=== PATIENT | female | born 2000 | race Caucasian/White ===

== ENCOUNTER 2022-06-24 21:23 | Emergency (ER) | payer OTHER, BC, SELFPAY ==
[2022-06-24 21:26] VITALS: BP 113/76; PULSE 68; RESP 12; TEMP 36.6; O2SAT 97; BMI 24.0
--- NOTE | 2022-06-24 22:08 | ED.GENADULT ---
HPI - General Adult General Chief complaint: Unspecified Complaint, Adult Stated complaint: Ring stuck on finger Time Seen by Provider: 06/24/22 21:26 History of Present Illness HPI narrative: Pt is a 22 year old woman who felt like the ring on her right forth finger is getting tighter. The more she tried to get it off the tighter it became. Pt now has swelling of the forth digit but still good blood supply. No trauma or other symptoms. Otherwise feeling well. Minimal pain. Related Data Home Medications Medication Instructions Recorded Confirmed fluticasone propionate 50 intranasal 03/24/22 mcg/actuation nasal spray,suspension gabapentin 300 mg capsule mg 03/24/22 trazodone 50 mg tablet mg 03/24/22 Allergies Allergy/AdvReac Type Severity Reaction Status Date / Time No Known Drug Allergies Allergy Verified 03/24/22 15:45 Review of Systems Status of ROS: Reports: 6 or more systems reviewed and unremarkable except as noted in History and below [facility] Medical History No significant past medical history Surgical History No significant past surgical history Social History Smoking Status: Former smoker Do you use any of these nicotine containing products: Vaping Products Second hand tobacco smoke exposure: Yes How often do you have a drink containing alcohol: never AUDIT-C Alcohol total score: 0 Non-prescribed substance use: former substance user and marijuana (any form) service: No Exam Narrative: Exam Narrative: EXAM GENERAL: Patient appears comfortable and well. EYES: No scleral icterus. LYMPH: No supraclavicular or cervical lymphadenopathy. SKIN: Visible skin seen during exam normal or with benign process only. EXT: No dependent lower extremity pedal edema. Mild swelling of the 4th digit of the right hand with tight ring in place. Good capillary refill normal neuromuscular function. PSYCH: Good eye contact, speech is not pressured. Const: Vital Signs, click to edit/add: Vital Signs - 24 hr 06/24/22 21:26 Temperature 97.9 F Pulse Rate [Pulse Oximeter] 68 Respiratory Rate 12 Blood Pressure [Ri ght Upper Arm] 113/76 Pulse Oximetry 97 Oxygen Delivery Me thod Room Air Course Course Hospital Course: The nursing staff did attempt multiple conservative treatments to remove the ring. Eventually, we did use a ring cutter to successfully remove the ring. Her finger is looking much better and she is ready for discharge. Vital Signs Vital signs: Initial Vital Signs Temperature 97.9 F 06/24/22 21:26 Temperature Source Temporal Artery Scan 06/24/22 21:26 Pulse Rate 68 06/24/22 21:26 Pulse Rhythm 06/24/22 21:26 Respiratory Rate 12 06/24/22 21:26 Blood Pressure 113/76 06/24/22 21:26 Blood Pressure Mean 88 06/24/22 21:26 Blood Pressure Position Sitting 06/24/22 21:26 Pulse Oximetry 97 06/24/22 21:26 Oxygen Delivery Method 06/24/22 21:26 Vital Signs Temperature 97.9 F 06/24/22 21:26 Pulse Rate 68 06/24/22 21:26 Respiratory Rate 12 06/24/22 21:26 Blood Pressure 113/76 06/24/22 21:26 Pulse Oximetry 97 06/24/22 21:26 Oxygen Delivery Method 06/24/22 21:26 Temperature 97.9 F 06/24/22 21:26 Pulse Rate 68 06/24/22 21:26 Respiratory Rate 12 06/24/22 21:26 Blood Pressure 113/76 06/24/22 21:26 Pulse Oximetry 97 06/24/22 21:26 Oxygen Delivery Method 06/24/22 21:26 Medical Decision Making MDM Narrative Medical decision making narrative: Patient presents with a tight ring on her 4th upper extremity digit. We did try to get the ring off conservatively but eventually cut the ring off with ring cutter. The swelling and induration of the finger improved immediately. Differential Diagnosis Differential Diagnosis: Tight ring, sprain, strain, fracture Discharge Plan Discharge Clinical Impression: Finger swelling Patient Disposition: Home, Self-Care Condition: Stable Additional Instructions: Ice Tylenol Motrin Activity Level: No Restrictions Discharge Diet: Regular Prescriptions: No Action trazodone 50 mg tablet gabapentin 300 mg capsule fluticasone propionate 50 mcg/actuation spray,suspension INTRANASAL Follow Up/Referrals: Adelaide Alejo PA-C [Primary Care Provider] - Stand Alone Forms: [facility] Info Instructions
[2022-06-24 22:14] VITALS: BP 113/76; PULSE 68; RESP 12; TEMP 36.6
--- OUTSIDE RECORDS SUMMARY | 2022-06-24 22:18 | XMS_ITS ---
:2000 Author Care Team Providers Name Role Phone FARZAD HAY Primary Care Provider [phone] DR. KONRAD GREENWOOD Referring Provider [phone] Allergies Code Code System Name Reaction Severity Status Onset Animal Dander ? ? Active ? Seasonale Contraceptive ? ? Deacti vated ? Notes: Seasonal Allergies Medications Name Status Start Date Stop Date ? ? bupropion HCl XL 150 mg 24 hr tablet, extended release Active ? Not available buspirone 10 mg tablet Active ? Not avail able clomipramine 25 mg capsule Completed ? 06/13 clomipramine 50 mg capsule Completed ? 06/13 clomipramine 75 mg capsule Active ? Not a vailable Elinest 0.3 mg-30 mcg tablet Active ? Not available fluticasone propionate 50 mcg/actuation nasal Active ? Not available spray,suspension hydroxyzine HCl 10 mg tablet Active ? Not available 10/07 (21) 1 mg-20 mcg tablet Completed ? 06/13/2018 once per day levocetirizine 5 mg tablet Active ? Not a vailable melatonin Active ? Not available Take 1 10 mg daily Myrbetriq 25 mg tablet,extended release Completed ? 06/13/2018 propranolol 20 mg tablet Completed ? 018 venlafaxine ER 37.5 mg capsule,extended release 24 hr Active ? Not available venlafaxine ER 75 mg capsule,extended release 24 hr Completed ? 01/31/2017 Wellbutrin Completed ? 06/13/2018 once per day Zyrtec Active ? Not available Take 1 tabelt daily Problems Name Status Onset Date Source ? Episodic Tension-type Headache Active 01/16/2017 ? 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 Arthralgia of Temporomandibular Joint Active 06/18/2018 ? Procedures Date Name Performed by ? ? Revise External Ear Information not avai lable ? Foot/toes Surgery Procedure Information not available 01/12/2017 XR, Orthopantogram [place] [address] [place] [address] (Work Place) Results Lab Results Date Name Specimen Result Interpretation Description Value Range Status Address ? ? XR, Orthopantogram ? No observation ? ? ? [place]: [address], [place] ? Oral Appliance ? No observation ? ? ? [place]: [address], [place] ? Behavioral Health ? No observation ? ? ? [place]: [address], [place] Past Encounters None recorded. Social History Tobacco Smoking Status Never Smoker Vaccine List Notes: No 01-31-17 Plan of Care Reminders Provider Appointments None recorded. ? ? Lab None recorded. ? ? Referral None recorded. ? ? Procedures None recorded. ? ? Surgeries None recorded. ? ? Imaging None recorded. ? ? Vitals 06/13/2018 03:30PM FOLLOW UP 30 Height Weight BMI Blood Pressure 5 ft 4 in 135 lbs 23.2 kg/m2 124/84 mm[Hg] 03/23/2017 11:30AM FOLLOW UP 30 Height Weight BMI Blood Pressure 5 ft 4 in 155 lbs 26.6 kg/m2 120/65 mm[Hg] 01/31/2017 03:30PM SPLINT INSERT Height Weight BMI Blood Pressure 5 ft 4 in 156 lbs 26.8 kg/m2 111/70 mm[Hg] 01/12/2017 03:00PM NEW PATIENT 60 Height Weight BMI Blood Pressure 5 ft 4 in 160 lbs 27.5 kg/m2 117/72 mm[Hg]
--- OUTSIDE RECORDS SUMMARY | 2022-06-24 22:18 | XMS_ITS ---
:2000 Author Care Team Providers Name Role Phone FARZAD HAY Primary Care Provider [phone] DR. KONRAD GREENWOOD Referring Provider [phone] Allergies Code Code System Name Reaction Severity [...] Procedure Information not available 01/12/2017 XR, Orthopantogram [place] [address] [place] [address] (Work Place) Results Lab Results Date Name Specimen Result Interpretation Description Value Range Status Address ? ? XR, Orthopantogram ? No observation ? ? ? [place]: [address], [place] ? Oral Appliance ? No observation ? ? ? [place]: [address], [place] ? Behavioral Health ? No observation ? ? ? [place]: [address] [...]
--- OUTSIDE RECORDS SUMMARY | 2022-06-24 22:18 | XMS_ITS | Clinical Summary ---
:2000 Author Organization [facility] Address [address] [place] [address] Care Team Providers Name Role Phone Unavailable Primary Care Provider Unavailable Source Comments Patient records contain information from all sites at [facility]. For routine questions regarding patient records, call [phone] during business hours, M-F 8:00 AM - 5:00 PM Central Time. Record requests for emergency care only can be directed to [phone] at any time.[facility] Social History Tobacco Use Types Packs/Day Years Used Date Smoking Tobacco: Never Assessed Sex Assigned at Date Recorded Not on file Plan of Treatment Health Maintenance Due Date Last Done Comments Chlamydia and Gonorrhea 2002 Screening HIV Screening 2002 Hearing Screening during 2002 Well Child Visit Hepatitis C Screening 2002 1 week Well Child Check-Up 2002 1 month Well Child Check-Up 2002 2 month Well Child Check-Up 2002 4 month Well Child Check-Up 2002 6 month Well Child / 2002 Alternative Check-Up 9 month Well Child Check-Up 2002 12 month Well Child / 02/24/2003 Alternative Check-Up 15 month Well Child Check-Up 05/27/2003 18 month Well Child 08/26/2003 2 year Well Child Check-Up 02/25/2004 30 month Well Child Check-Up 08/26/2004 3 year Well Child Check-Up 02/24/2005 4 year Well Child Check-Up 02/24/2006 5 year Well Child Check-Up 02/24/2007 6 year Well Child Check-Up 02/25/2008 7 year Well Child / 02/24/2009 Alternative Check-Up 8 year Well Child Check-Up 02/24/2010 9 year Well Child / 02/24/2011 Alternative Check-Up 10 year Well Child Check-Up 02/25/2012 11 year Well Child Check-Up 02/24/2013 12 year Well Child Check-Up 02/24/2014 13 year Well Child Check-Up 02/24/2015 16 year Well Child Check-Up 02/25/2016 Vision Screening during Well 2016 Child Visit 17 year Well Child Check-Up 02/24/2017 18 year Well Child Check-Up 02/24/2018 19 year Well Child Check-Up 02/24/2019 20 year Well Child Check-Up 02/25/2020 21 year Well Child Check-Up 02/24/2021 COVID-19 Vaccine (3 - 09/07/2021 07/13/2021, 06/11/2021 Booster for Pfizer series) Depression Screening (Annual 09/18/2021 PHQ-2) 22 year Well Child Check-Up 02/24/2022 Well Child Check-Up ([facility]) 02/24/2022 Influenza Vaccine (#1) 2022 05/17/2012, 05/17/2012, 06/21/2011, Additional history exists DTaP,Tdap,and Td Vaccines (8 04/12/2031 04/12/2021, 013, - Td or Tdap) 05/17/2007, Additional history exists Pneumococcal vaccine (0-64 Aged Out 09/02/2003, 2, No longer eligible years) 2002 based on patient 's age to complete this topic Meningococcal Vaccine Completed 07/12/2019, 05/15/2013 Anemia/Iron Deficiency Completed 07/31/2019 Screening During Well Child Visit (if High Risk Menstruating Female) HPV Vaccines Completed 01/29/2020, 09/06/2019, 07/12/2019 Hepatitis B Vaccines Completed 10/27/2020, 05/12/2003, 2002, Additional history exists
--- OUTSIDE RECORDS SUMMARY | 2022-06-24 22:18 | XMS_ITS | Encounter Summary ---
:2000 Author Organization [facility] Address [address] [place] [id number] Care Team Providers Name Role Phone Unavailable Primary Care Provider Unavailable Reason for Visit Appointment Request (Routine) - Closed Specialty Diagnoses / Procedures Referred By Contact Refer red To Contact Preventive Medicine Referral ID Status Reason Start Date Expiration Date Visits Requ ested Visits Authorized [id number] Closed 09/30/2020 09/30/2021 1 1 Encounter Details Date Type Department Care Team Description 09/30/2020 Internal E-Consult Section of Preventive, Celi Chavez M.D. Occupational Medicine in [address] [place] [address] [place] [id number] [place] [address] [phone] Social History Tobacco Use Types Packs/Day Years Used Date Smoking Tobacco: Never Assessed Sex Assigned at Date Recorded Not on file documented as of this encounter Consult Notes Darien Chavez M.D. - 09/30/2020 2:00 PM CST SUBJECTIVE Lona Chowdary is a 20 y.o. female who requires evaluation for respiratory clearance. Mask types: N95/PAPR Prior difficulties using mask: No Significant medical history: No Respirator questionnaire: Reviewed, no concerns ASSESSMENT / PLAN Respirator clearance review completed. Based on the review, appropriate test and exam, she is medically cleared for unrestricted N95 and PAPR respirator and personal protective equipment use. Recheck per [facility] institutional protocol, sooner if needed. Appropriate forms filled out for the employer, see scanned documents for details. 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
--- OUTSIDE RECORDS SUMMARY | 2022-06-24 22:18 | XMS_ITS | Clinical Summary ---
:2000 Author Organization [facility] [place] [address] Care Team Providers Name Role Phone Adelaide Alejo Primary Care Provider [phone] Allergies Active Allergy Reactions Severity Noted Date Comments Cats (Fur, Dander, Other - Describe In 05/17/2007 it emir eyes, sneezing Saliva) Comment Field Pollen Extracts Runny Nose 04/07/2014 Medications Medication Sig Dispensed Refills Start Date End Date Status cetirizine (ZYRTEC) 10 Take 1 tablet 0 02/03/2014 Active mg tablet by mouth once daily. linaCLOtide (LINZESS) Take 1 Capsule 30 capsule. 11 04/21/2021 Active 72 mcg cap (72 mcg) by capsuleIndications: mouth once Irritable bowel daily. syndrome with constipation, Chronic constipation gabapentin (NEURONTIN) Take 1 Capsule 60 Capsule 2 06/09/2021 Active 300 mg (300 mg) by capsuleIndications: mouth 2 times Anxiety daily. traZODone (DESYREL) 50 Take 1-2 90 Tablet 0 12/31/2021 Active mg tabletIndications: Tablets (50-100 Insomnia, idiopathic mg) by mouth at bedtime. phenazopyridine Take 1 Tablet 6 Tablet 0 03/05/2022 Active (PYRIDIUM) 200 mg (200 mg) by tabletIndications: mouth 3 times Urinary tract infection daily after with hematuria, site meals. unspecified fluticasone (50 mcg per INHALE TWO 48 g 1 05/20/2022 Active actuation) nasal SPRAYS TO BOTH solution NOSTRILS ONCE (FLONASE)Indications: DAILY Seasonal allergies, Animal dander allergy nicotine (NICORETTE) 2 Chew 1 gum (2 100 Each 0 05/31/2022 Active mg gumIndications: mg) every hour Smoking trying to quit while awake as needed for Nicotine Craving. nicotine (NICORETTE) 4 Chew 1 Each (4 100 Each 4 06/24/2022 Active mg gumIndications: mg) every hour Smoking trying to quit while awake as needed for Nicotine Craving. Active Problems Problem Noted Date Nexplanon in place 08/11/2020 Overview: Left arm, placed 08/11/2020 Cannabis use disorder, mild, in early remission 2017 Nicotine abuse 06/29/2018 Alcohol abuse 06/29/2018 JOSE (generalized anxiety disorder) 07/03/2017 Parent-child relational problem 06/17/2016 Self-inflicted injury 09/01/2015 Major depressive disorder, single episode, moderate Anxiety state, unspecified 01/06/2015 Syncope 03/13/2013 Allergic rhinitis, cause unspecified 07/25/2008 Resolved Problems Problem Noted Date Resolved Date Intentional drug overdose 06/29/2018 10/08/2021 Alcohol abuse, continuous 11/10/2015 08/25/2017 Reactive airway disease 07/25/2008 03/19/2014 Varicella without mention of complication 10/02/2007 06/04/2010 Overview: allergic to eggs Acute bronchitis 01/16/2007 07/02/2007 Encounters Date Type Specialty Care Team Description 06/24/2022 Phone Office Visit Adelaide Alejo Phone Visit (KEISHA Traylor during sex - cy cles are becoming chun r and scooby - royal herrera spotting.); Con ceryamileth (Had a diagnosi s of ADHD, therapist thinks it may be a goo d idea to try ADHD meds. ) 06/24/2022 Travel 05/17/2022 Refill Adelaide Alejo Refill Requ KEISHA Daniel (Fluticasone (5 0 Mcg Per Actuation) Nasa l) from Last 3 Months Immunizations Name Administration Dates Next Due DTaP 05/17/2007, 09/02/2003, 2002, 2002, 2002 HIB HbOC (HibTITER) 09/02/2003, 2002, 2002, 2002 HIB PRP-T (ActHIB,Hiberix) 09/02/2003, 2002, 2, 2002 HPV 9 (Gardasil 9) 01/29/2020, 09/06/2019, 07/12/2019 Hep B (Hepatitis B (Adult) Recombinant 10/27/2020 Adjuvanted) Hepatitis A (Peds) 06/21/2011, 06/04/2010 Hepatitis B (Peds) 05/12/2003, 2002, 2002 Inactivated Polio Vaccine 05/17/2007, 09/02/2003, 2002 , 2002 Influenza, IIV3 (Age 6-35 mos) 06/21/2011, 06/04/2010 Influenza, IIV3 (Age >=3 years) 05/17/2012, 06/21/2011, 05/19, 07/25/2008 MMR 05/17/2007, 09/02/2003 Meningococcal Vaccine (Menveo) 07/12/2019, 05/15/2013 Pneumococcal conj 7-Valent (Prevnar 7) 09/02/2003, 2, 2002 Tdap 04/12/2021, 05/15/2013 Varicella Vaccine 06/04/2010, 07/25/2008 Family History Medical History Relation Name Comments Alcoholism Father recovered Allergies Father Hyperlipidemia Father Hypertension Father Psychiatric illness Father depression Allergies Maternal Aunt Asthma Maternal Aunt Alcoholism Maternal Grandmother recovered Cancer Maternal Grandmother cervical Psychiatric illness Maternal Grandmother depress ion, anxiety Psychiatric illness Mother anxiety, ADH D-Lorazepam as needed Cancer Paternal Grandmother cervical Psychiatric illness Paternal Grandmother depress ion Relation Name Status Comments Father Alive Half-Brother Alive Half-Sister Alive Maternal Aunt Maternal Grandmother Mother Alive Paternal Grandmother Social History Tobacco Use Types Packs/Day Years Used Date Passive Smoke Exposure - Never Smoker Smokeless Tobacco: Never Used Tobacco Cessation: Counseling Given: Yes Comments: parents smoke but smoke outdoo rs-used to vape 07/19/19 Alcohol Use Standard Drinks/Week Comments Not Currently 0 (1 standard drink = 0.6 oz pure alcoho l) 2 x month Alcohol Habits Answer Date Recorded How often do you have a drink containing alcohol? Not asked How many drinks containing alcohol do you have on a typical Not asked day when you are drinking? How often do you have six or more drinks on one occasion? No t asked Comment: 2 x month 06/29/2018 Sex Assigned at Date Recorded Female 04/27/2021 9:11 AM CDT COVID-19 Exposure Response Date Recorded In the last 10 days, have you been in contact Unable to asse ss 06/24/2022 2:20 PM CDT with someone who was confirmed or suspected to have Coronavirus/COVID-19? Obstetrics History Last Filed Vital Signs Vital Sign Reading Time Taken Comments Blood Pressure 111/68 03/05/2022 3:53 PM CDT Pulse 87 03/05/2022 3:53 PM CDT Temperature 36.9 ??C (98.4 ??F) 03/05/2022 3:53 PM CDT Respiratory Rate 16 03/05/2022 3:53 PM CDT Oxygen Saturation 96% 03/05/2022 3:53 PM CDT Inhaled Oxygen Concentration - - Weight 71.7 kg (158 lb) 02/08/2022 12:04 PM CDT Height 163.8 cm (5' 4.49) 02/08/2022 12:04 PM CDT Body Mass Index 26.71 02/08/2022 12:04 PM CDT Plan of Treatment Health Maintenance Due Date Last Done Comments Pneumococcal series for age 19-64 2008 (1 - PCV) COVID-19 vaccine series (3 - 09/07/2021 07/13/2021, 021 Booster for Pfizer series) Influenza for age 9-49 05/19/2022 05/17/2012, 06/21/2011, 06/04/2010, Additional history exists Depression screening for age 12+ 06/09/2022 06/09/2021, , 03/23/2020, Additional history exists Well Child Check for age 3-20 06/09/2022 06/09/2021, 2018, 06/06/2017, Additional history exists BMI (ht and wt on same day) for 02/08/2023 02/08/2022, 09/19, age 18+ 06/30/2021, Additional history exists Chlamydia for age 16-24 03/05/2023 03/05/2022, 02/08/2022, 10/08/2021, Additional history exists Tetanus booster 04/12/2031 04/12/2021, 05/15/2013 Meningococcal series for age 11-21 Completed 07/12/2019, 0 05/15/2013 HPV series for age 9-26 Completed 01/29/2020, 09/06/2019, 07/12/2019 Tdap Completed 04/12/2021, 05/15/2013 Hepatitis C screening for age Completed 06/09/2021, 2020 18-79 Results Not on filefrom Last 3 Months Insurance Payer Benefit Plan / Subscriber ID Effective Dates Phone Addre ss Type Group PREFERRED ONE PREFERRED ONE [id number] 2020-Present [address] [address] [place] [address] [employer] [place] [employer] [id number] 2018-Present [address] [address] [place] [address] Advance Directives Latest Code Status on File Code Status Date Activated Date Inactivated Comments Full Code 04/09/2014 12:27 AM 04/09/2014 5:16 PM Care Teams Health Care Technician Relationship Specialty Start Date End Date Adelaide Alejo PA PCP - General Family Practice 06/09/14 [place] [address]
--- OUTSIDE RECORDS SUMMARY | 2022-06-24 22:18 | XMS_ITS | Encounter Summary ---
:2000 Author Organization [facility] Address [address] [place] [address] Care Team Providers Name Role Phone Unavailable Primary Care Provider Unavailable Reason for Visit Reason Comments COVID Nurse Line Encounter Details Date Type Department Care Team Description 01/01/2020 Clinical Communication Central Appointment Line, Covid COVID Nurse Line Office in [facility] [address] [place], [place] [id number] Social History Tobacco Use Types Packs/Day Years Used Date Smoking Tobacco: Never Assessed Sex Assigned at Date Recorded Not on file documented as of this encounter Miscellaneous Notes Telephone Encounter - Alessandra Ryder R.N., C.C.T.C. - 01/01/2020 4:20 PM CDT COVID-19 Nurse Line Screening ASSESSMENT COVID 19 Screening Have you had close contact with a person who has a LABORATORY CONFIRMED case of COVID-19?: Yes - Continue screening. Is this close contact a household contact?: No- Continue screening In the last 48 hours have you had any of the following symptoms?: No - Complete screening. Consider alternative diagnosis. We are not currently testing or isolating patients or visitors who have no symptoms and no close contact. PLAN Endpoint recommendation: Screening negative, testing not indicated at this time Care Points provided: Standard precautions for all patients: Wash hands often with soap and water for at least 20 seconds, especially after blowing your nose, coughing, sneezing, or having been in a public place. If soap and water aren't available, use a hand roll skinner that contains at least 60% alcohol. Avoid close contact with anyone who may be exhibiting respiratory symptoms such as coughing and sneezing. Avoid touching your eyes, nose and mouth. Clean and disinfect frequently touched surfaces daily. Cover your mouth and nose with a cloth face cover when around others or in public. The cloth face cover is not a substitute for social distancing. Continue to keep about 6 feet between yourself andothers. Stay home as much as possible (only going out for essential items or medical care). Educational Resource: https://www.cdc.gov/coronavirus/2019-ncov/vcyxqcl-qzmgekp-jqxl/index.html Education: patient/caregiver Patient/caregiver able to teach back Patient agreeable to plan of care: Yes The following references were used: [facility] novel coronavirus (COVID- 19) resources Bam Telephone Triage Protocols for Nurses Nursing judgement documented in this encounter Plan of Treatment Not on filedocumented as of this encounter Visit Diagnoses Not on filedocumented in this encounter
--- NOTE | 2022-06-24 22:19 | ED.NURSE ---
Ring removed by ring cutter. Pt tolerated well.
== END 2022-06-24 22:19 | disposition home or self-care (01) ==
LOC: ED 22:16
PROVIDERS: Emergency Provider Internal Medicine; PCP Physician Assistant Medical
DX: S60.444A External constriction of right ring finger, initial encounter (principal)
CPT/HCPCS: 99283

== ENCOUNTER 2022-11-29 10:00 | Outpatient (RCR) | payer OTHER, BC, SELFPAY | END 2023-03-09 13:06 | disposition home or self-care (01) | PROVIDERS: PCP Physician Assistant Medical; Visit Provider Physician Assistant Medical | DX: M25.551 Pain in right hip (principal); M25.552 Pain in left hip; R26.9 Unspecified abnormalities of gait and mobility; R53.1 Weakness; Z51.89 Encounter for other specified aftercare | CPT/HCPCS: 97110; 97140; 97162; 97535 ==